=== PATIENT | male | born 1945 | race Caucasian/White ===

== ENCOUNTER 2021-06-13 09:00 | Day surgery (SDC) | payer OTHER ==
[~2021-06-13 09:00] MED LIST: DOXA PO; FAMOTI PO; PREDNISONE PO; SYNTHROID PO
== END 2021-06-13 22:40 | disposition home or self-care (01) ==
LOC: CIR.AMB 09:00
PROVIDERS: ATTEND Anesthesiology Pain Medicine
DX: A52.19 Other symptomatic neurosyphilis (principal); Z20.822 Contact with and (suspected) exposure to COVID-19

== ENCOUNTER 2023-10-12 16:31 | Outpatient (CLI) | payer OTHER | END 2023-10-12 16:38 | disposition home or self-care (01) | LOC: LAB 16:31 | PROVIDERS: ATTEND Urology | DX: R97.20 Elevated prostate specific antigen [PSA] (principal) ==

== ENCOUNTER → 2023-12-08 | Outpatient (CLI) | payer OTHER | END | disposition home or self-care (01) | LOC: SONOGRAMA 07:06 | PROVIDERS: ATTEND Urology | DX: C61 Malignant neoplasm of prostate (principal); R97.20 Elevated prostate specific antigen [PSA] ==

== ENCOUNTER 2024-05-19 09:42 | Inpatient (IN) | payer OTHER ==
[~2024-05-19] VITALS: Ht 167.6 cm; Wt 63.5 kg
[2024-05-19 10:22] LABS: HEMATOCRIT 43.1 % (39.0-48.0); HEMOGLOBIN 14.8 g/dL (13-16.00); MEAN CELL VOLUME 88.5 fL (80.0-100.00); MEAN CORPUSCULAR HEMOGLOBIN 30.4 pg (27.00-32.0); MEAN CORPUSCULAR HGB CONC 34.4 g/dl (32.0-36.0); PLATELET COUNT 183 K/uL (150-450); RED BLOOD COUNT 4.87 M/uL (4.00-6.00); RED CELL DISTRIBUTION WIDTH 13.4 % (11.5-14.5)
[2024-05-19 10:29] LABS: URINE APPEARANCE Clear; URINE BILIRRUBIN Negative (NEGATIVE); URINE BLOOD Negative; URINE COLOR Yellow; URINE GLUCOSE Negative (NEGATIVE); URINE LEUKOCYTE Negative; URINE NITRATE Negative; URINE PROTEIN Negative (NEGATIVE); URINE UROBILINOGEN 0.2 E.U./dl
[2024-05-19 10:45] LABS: URINE BACTERIA 3.7 uL (0.0-1933); URINE EPITHELIAL CELLS 0.7 uL (0.0-38.8); URINE RBC 1.6 uL (0.0-20.8); URINE WBC 0.7 uL (0.0-23.2)
[2024-05-19 10:46] LABS: CALCIUM 9.7 mg/dL (8.5-10.1); CREATININE SERUM 1.61 mg/dL (0.70-1.30); GFR 41.93; POTASSIUM 4.07 mEq/L (3.5-5.1)
[2024-05-19 10:48] LABS: PARTIAL THROMBOPLASTIN TIME 28.5 SECONDS (22.0-34.0); PROTHROMBIN TIME 10.5 SECONDS (9.0-11.5)
[2024-05-19] MEDS ORDERED: COZAAR25 MG PO (11:05)
[2024-05-26] MEDS ORDERED: CEFAZOLIN SODIUM 1,000 MG VIAL IV ONE (07:00)
[2024-05-26] MEDS ORDERED: SUGAMMADEX SODIUM 200 MG/2 ML VIAL IV ONE (11:30)
[2024-05-26] MEDS ORDERED: DEXTROSE 5 %-0.45 % SOD CHLORD 1,000 ML IV SCH (16:08)
[2024-05-26] MEDS ORDERED: MORPHINE SULFATE 4 MG/ML CARTRIDGE IV PRN (16:15)
[2024-05-26] MEDS ORDERED: ONDANSETRON HCL 2 MG/ML VIAL IV PRN (16:15)
[2024-05-26] MEDS ORDERED: SIMETHICONE 125 MG CAPSULE PO SCH (17:00)
[2024-05-26] MEDS ORDERED: DOCUSATE SODIUM 100MG CAP PO SCH (17:00)
[2024-05-26] MEDS ORDERED: FAMOtidine 20 MG TABLET PO SCH (17:00)
[2024-05-26] MEDS ORDERED: CEFAZOLIN SODIUM 1,000 MG VIAL IV SCH (17:00)
[2024-05-27] MEDS ORDERED: 0.9 % SODIUM CHLORIDE 500 ML IV STA (06:13)
[2024-05-27 07:55] LABS: HEMATOCRIT 33.5 % (39.0-48.0); HEMOGLOBIN 11.4 g/dL (13-16.00); MEAN CELL VOLUME 87.1 fL (80.0-100.00); MEAN CORPUSCULAR HEMOGLOBIN 29.7 pg (27.00-32.0); MEAN CORPUSCULAR HGB CONC 34.1 g/dl (32.0-36.0); PLATELET COUNT 171 K/uL (150-450); RED BLOOD COUNT 3.85 M/uL (4.00-6.00); RED CELL DISTRIBUTION WIDTH 13.6 % (11.5-14.5)
[2024-05-27 08:40] LABS: CALCIUM 8.2 mg/dL (8.5-10.1); CREATININE SERUM 2.29 mg/dL (0.70-1.30); GFR 27.92; POTASSIUM 4.03 mEq/L (3.5-5.1)
[2024-05-27] MEDS ORDERED: ENOXAPARIN SODIUM 40 MG/0.4 ML SYRINGE SUBCUTANEO SCH (09:00)
[2024-05-27] MEDS ORDERED: cloNIDine HCL 0.2 MG TABLET PO SCH (11:00)
[2024-05-28] MEDS ORDERED: LEVOTHYROXINE SODIUM 25 MCG TABLET PO SCH (06:00)
[2024-05-28 11:07] LABS: CALCIUM 7.9 mg/dL (8.5-10.1); CREATININE SERUM 2.21 mg/dL (0.70-1.30); GFR 29.09; POTASSIUM 3.4 mEq/L (3.5-5.1)
== END 2024-05-28 13:58 | disposition home or self-care (01) | DRG 708 ==
LOC: O/R 05-26 06:00 → SURG 05-26 06:00 → SURH 05-26 07:00 → SURG 05-26 11:37
PROVIDERS: ADMIT Urology; ATTEND Urology
PROC: 07BC4ZX Excision of Pelvis Lymphatic, Percutaneous Endoscopic Approach, Diagnostic (ICD-10-PCS; 2024-05-26)
PROC: 0VT04ZZ Resection of Prostate, Percutaneous Endoscopic Approach (ICD-10-PCS; principal; 2024-05-26 07:00)
DX: C61 Malignant neoplasm of prostate (principal)

== ENCOUNTER 2024-06-05 10:57 | Outpatient (CLI) | payer OTHER ==
[~2024-06-05 10:57] MED LIST changes: +COZAAR25 MG PO
== END 2024-06-05 10:59 | disposition home or self-care (01) ==
LOC: SONOGRAMA 10:57
PROVIDERS: ATTEND Urology
DX: N30.00 Acute cystitis without hematuria (principal)

== ENCOUNTER 2024-06-05 12:16 | Outpatient (CLI) | payer OTHER ==
[2024-06-05 13:54] LABS: CALCIUM 9.7 mg/dL (8.5-10.1); CREATININE SERUM 1.63 mg/dL (0.70-1.30); GFR 41.34; POTASSIUM 4.58 mEq/L (3.5-5.1)
== END 2024-06-05 12:18 | disposition home or self-care (01) ==
LOC: LAB 12:16
PROVIDERS: ATTEND Urology
DX: N30.00 Acute cystitis without hematuria (principal)